=== PATIENT | female | born 2005 | race Two or more races ===

== ENCOUNTER 2023-03-07 11:34 | Emergency (ER) | payer MEDICAID, OTHER, SELFPAY ==
--- NOTE | ~2023-03-07 | XR_ITS ---
EXAMINATION: XR ABDOMEN COMPLETE CLINICAL INDICATION: Rule out constipation COMPARISON: None available. TECHNIQUE: 2 views of the abdomen. FINDINGS: Moderate stool burden in the distal colon. No dilated loops of bowel to suggest obstruction. No evidence of free air. No calcifications. Curvature of the lower lumbar spine to the right. XR/XR abdomen min 2V IMPRESSION: Constipation. No evidence of obstruction.
--- NOTE | 2023-03-07 11:42 | ED.PSYCH ---
HPI - Psych General Chief Complaint: Psychiatric Symptoms Stated Complaint: SI Time Seen by Provider: 03/07/23 12:57 Source: patient, RN notes reviewed and other (guidance counselor) Mode of arrival: ambulatory Limitations: no limitations History of Present Illness HPI Narrative: 17 year old female with pmhx significant for constipation presents to the ED for evaluation of suicidal ideation. She presents with her school guidance counselor who is at bedside. Patient admits to not being well for some time . Admits to having thoughts of harming herself. Denies plan. Reports history of self-harm years ago. Can't remember how she harmed herself. She denies illicit drug use. Denies auditory, visual, tactile hallucinations. Denies HI. Her only physical complaint at present is left-sided abdominal pain. Cannot say when this pain started. Cannot remember when her last BM was. Does not currently take anything for constipation. She is currently a liberal arts major in college and reports increased stressors. Related Data Home Medications Medication Instructions Recorded Confirmed No Known Home Meds 03/07/23 03/07/23 Allergies Allergy/AdvReac Type Severity Reaction Status Date / Time No Known Allergies Allergy Verified 03/07/23 11:47 Review of Systems Review of Systems: Constitutional: No fever, chills, fatigue, night sweats, weight changes ENT/Mouth: No ear pain, hearing loss, nasal congestion, sinus pain, rhinorrhea, sore throat Eyes: No eye pain, swelling, redness, vision changes, discharge Cardio: No chest pain, palpitations, MURPHY, orthopnea, peripheral edema Pulm: No SOB, cough, sputum, wheezing, dyspnea, hemoptysis GI: No nausea, vomiting, hematemesis, abdominal pain, diarrhea, constipation, hematochezia, melena : No irregular bleeding, dysuria, frequency, urgency, hesitancy, hematuria, flank pain, urinary flow changes, urinary incontinence or retention MSK: No back pain, neck pain, joint pain, myalgias Skin: No lesions, rashes Neuro: No weakness, numbness, paresthesias, LOC, dizziness, headache Psych: No anxiety/panic, +depression, +SI, No HI, AH/VH All other systems reviewed and are negative. [facility] Past Medical History Attestation statement: The following information was validated with the patient. Source: old records reviewed and nursing notes reviewed Social History Social History Alcohol intake: never Smoked in Last 30 Days: No Use of substances other than those prescribed or required for medical reasons: No Advance Directives: No Healthcare Proxy: No Guardian: No Physical Exam Vital Signs: Vital Signs: Last Vital Signs Temp 98.1 F 03/07/23 16:17 Pulse 68 03/08/23 06:24 Resp 14 03/08/23 06:24 BP 113/55 L 03/08/23 06:24 Pulse Ox 99 03/08/23 06:24 O2 Del Method Room Air 03/08/23 06:24 BMI result Body Mass Index 17.8 Vital signs stable Const: Other: + Soft spoken, avoiding eye contact, hesitant to answering questions General: cooperative, no acute distress, alert and awake Orientation/consciousness: patient oriented x3 Limitations: no limitations HEENT: Head: Yes normal to inspection Ears: hearing grossly normal bilaterally General nose exam: Normal external nose present Eyes: General: appearance normal, both eyes and all related structures Conjunctivae: conjunctivae normal Sclerae: sclerae normal Pupils: Equal, round and reactive pupils present Neck: Neck: Yes normal visual inspection and Yes no lymphadenopathy Resp: Effort & Inspection: normal respiratory effort Auscultation: clear to auscultation bilaterally Cardio: Rate: regular rate Rhythm: regular rhythm Peripheral pulses: radial pulses present and dorsalis pedis present GI: Other: + Abdomen soft, nondistended, tender to palpation of the left upper and left lower quadrants, no rebound or guarding, normoactive BS x4. Inspection: Yes normal to inspection and No visible pulsation : General: Yes no CVA tenderness Back/Spine/Pelvis: Back: no CVA tenderness Skin: General skin exam: no rashes or lesions noted Trauma: no lacerations or abrasions Neuro: General: patient oriented x3, gait normal and moves all extremities Cranial nerves: Yes CN's II-XII intact bilaterally and Yes Equal, round and reactive pupils present Extrem: General: Yes normal to inspection Psych: Other: + Slow to answer questions. Guarded in her answers, specifically when talking about her past. Avoids eye contact. Soft spoken. Appearance: grossly normal Course Course Course Narrative: This is an RME: Additional HPI, ROS, PE not included below will be deferred to primary provider. This is a 44-rby[age]-mpw-female, with no known medical problems, presenting to the emergency department for evaluation of no longer wanting to live. Pt very somnolent in triage, not answering questions. Coaches here from school stating that patient informed her that she no longer had the will to live. She did not express any plans. When I personally asked if she has made any attempts to end her life, patient reports no. No auditory or visual hallucinations. Was seen at [facility] several days ago for ?allergies?, unable to answer me when asked if she has ever been admitted to a psychiatric hospital. Pt brought back immediately to room 8 for further evaluation. Plan: Labs, UA, utox, ethanol, care team Reevaluation(s) Reevaluation #1: 1529-- CBC without leukocytosis or anemia. Chemistry without acute electrolyte abnormality requiring intervention. Ethanol negative. Awaiting UA, urine Pred, urine drug screen, x-ray. >> Physician observation initiated. 1635-- X-ray abdomen showing constipation, no obstruction. Will order miralax and monitor for BM. Urine drug screen negative. Urine negative. Urine showing moderate amount of leukocyte esterase, 6-10 WBC however 11-20 squamous epithelial cells, likely contamination, no infection. Patient is medically cleared for care team consult. Physician observation initiated. 1648-- Discussed case with Ophelia from care team who evaluated patient. Plan at this time is to transfer patient to respite facility in the morning. Patient is agreeable with this plan. Physician observation continued. 1649-- Patient signed out to my collegue Santosh ESPINAL. Reevaluation #2: Has been evaluated by care team patient is a good candidate for [facility] respite bed, will arrange for transportation. Time: 11:26 Medications Administered Discontinued Medications Generic Name Dose Route Start Last Admin Trade Name Freq PRN Reason Stop Dose Admin Polyethylene Glycol 17 gm 03/07/23 16:15 03/07/23 16:20 Polyethylene Glycol 3350 17 Gm Powd.Pack PO 03/07/23 16:16 17 gm ONCE ONE Administration Medical Decision Making Medical Decision Making MDM Narrative: 17 year old female with pmhx significant for constipation presents to the ED for evaluation of suicidal ideation. VSS. Patient slow to answer questions, guarded. Soft spoken and avoiding eye contact. Abdomen is soft, ND, mildly TTP of LLQ/LUQ, no rebound or guarding, normoactive BS x4. Concern for suicidal ideation. Clinical concern for chronic constipation vs obstruction. Unlikely acute abdomen. Plan at this time is labs, imaging, and medical clearance. Differential Diagnosis Differential Diagnoses: The differential diagnosis associated with the presentation includes As above. Consult Healthcare Provider Management of the patient was discussed with: Behavioral Health Provider (care team) Lab Data MDM Lab Attestation statement: I reviewed the patient's lab results. As above. 03/07/23 13:04 03/07/23 13:04 Labs: Lab Results 03/07/23 03/07/23 Range/Units 13:04 16:16 WBC 6.6 (4.8-10.8) X10*3/uL RBC 4.58 (4.20-5.50) X10*6/uL Hgb 14.1 (12.0-16.0) g/dl Hct 41.0 (37.0-47.0) % MCV 89.5 (80.0-98.0) fL MCH 30.8 (27.0-33.0) pg MCHC 34.4 (31.0-35.0) g/dl RDW 12.1 (11.0-16.0) % Plt Count 337 (160-400) X10*3/uL MPV 8.9 L (9.4-12.3) fL Immature Gran % (Auto) 0.2 (0.0-0.4) % Neut % (Auto) 62.4 (45-73) % Lymph % (Auto) 32.8 (20-40) % [place] % (Auto) 4.0 (2-11) % Eos % (Auto) 0.3 (0-4) % Baso % (Auto) 0.3 (0-2) % Lymph # (Auto) 2.2 (1.2-4.9) X10*3/uL [place] # (Auto) 0.3 (0.1-1.2) X10*3/uL Eos # (Auto) 0.0 (0.0-0.4) X10*3/uL Baso # (Auto) 0.0 (0.0-0.2) X10*3/uL Abs Immat Gran (auto) 0.01 (0.00-0.03) X10*3/uL Absolute Neuts (auto) 4.1 (2.0-8.3) x10*3/uL Absolute Nucleated RBC 0.000 (0.0-0.012) X10*3/uL Nucleated RBC % (auto) 0.0 (0.0-0.2) /100WBC Sodium 137 (135-145) mmol/L Potassium 4.0 (3.3-5.1) mmol/L Chloride 107 (96-108) mmol/L Carbon Dioxide 22 (22-29) mmol/L Anion Gap 12 (12-20) BUN 13 (9-16) mg/dL Creatinine 0.71 (0.5-1.4) mg/dL Estim Creat Clear Calc 83.0 Estimated GFR > 60 Random Glucose 119 H (60-115) mg/dL Calcium 9.6 (8.4-10.2) mg/dL Total Bilirubin 0.5 (0.0-1.0) mg/dL Direct Bilirubin 0.2 (0.0-0.5) mg/dL AST 21 (5-31) U/L ALT 9 (0-31) U/L Alkaline Phosphatase 71 (39-117) U/L Total Protein 7.5 (6.5-8.0) g/dL Albumin 4.1 (3.5-5.0) g/dL Urine Color Yellow Urine Appearance Cloudy Urine pH 6.5 (5.0-9.0) Ur Specific [place] 1.015 (1.005-1.025) Urine Protein Negative (Neg-Trace) mg/dL Urine Glucose (UA) Negative (Negative) mg/dL Urine Ketones 15 (Negative) mg/dL Urine Blood Negative (Negative) Urine Nitrite Negative (Negative) Ur Leukocyte Esterase Moderate (2+) H (Negative) Urine RBC 0-2 (0-2) /HPF Urine WBC 6-10 H (0-5) /HPF Ur Squamous Epith Cells 11-20 (0-2) /HPF Urine Bacteria 2+ (None Seen) Hyaline Casts 0-2 (0-2) /LPF Urine Test NEGATIVE (NEGATIVE) Urine Opiates Screen Not Detected (Not Detect) Urine Fentanyl Screen Not Detected (Not Detect) Ur Barbiturates Screen Not Detected (Not Detect) Ur Phencyclidine Scrn Not Detected (Not Detect) Ur Amphetamines Screen Not Detected (Not Detect) U Benzodiazepines Scrn Not Detected (Not Detect) Urine Cocaine Screen Not Detected (Not Detect) U Marijuana (THC) Screen Not Detected (Not Detect) Ethyl Alcohol < 10 mg/dL Independent Interpretation I performed an independent interpretation of an: Plain X-Ray Interpretation: XR abdomen showing constipation, agree with radiologist's interpretation. Radiology Impression Discussion of test interpretation with radiology: I have reviewed the radiologist's reading. Radiologist Impression: XR abdomen min 2V IMPRESSION: Constipation. No evidence of obstruction. Independent Historian Clinical information obtained from an independent historian. History obtained from or confirmed by: Other (school counselor) External Record Review External record reviewed: Inpatient record Prescription Management I considered prescription management with: Other (laxative) Chronic Conditions Patient?s care impacted by: Other (constipation) Social Determinants Patient?s care significantly limited by Social Determinants of Health including: Other Social Determinant of Health Critical Care Time Critical Care Time Critical Care Time: No Discharge Plan Discharge Clinical Impression: Suicidal ideation, Depression, Constipation Patient Disposition: Still a Patient Prescriptions: No Action No Known Home Meds Interventions: [place]-Suicide Risk Severity Scale Last Done: 03/08/23 10:00
[2023-03-07 11:43] VITALS: BP 108/79; PULSE 89; RESP 18; TEMP 37; O2SAT 100; BMI 17.8
--- NOTE | 2023-03-07 11:52 | MHC.CARE ---
CARE Team received call from Alycia ramirez [facility] counselor ([phone]) she reported that Pt was brought to her office today by her learning strategist. Pt has communicated that she has been experiencing suicidal thoughts since weekend. Pt was nonverbal and responding to questions by writing them down on paper. She stated Pt was recently seen for crisis somewhere but reported she did not disclose SI to them. Mattjasmeet reported Pt was enrolled in counseling services at [facility] but has not been active with services recently and is able to speak normally though she is slow to respond at times.
--- NOTE | 2023-03-07 12:15 | PC.NURSE ---
Patient alert and oriented. reports has had thoughts of SI for thelast few days. Reports chest and abdominal pain. Reports has had some nausea and vomiting over the last few days.Patient tearful and soft spoken with poor eye contact. Denies SI, denies any stressors at home or school.
[2023-03-07 13:08] LABS: MANUAL DIFF FLAG NO
[2023-03-07 13:09] LABS: Basophils Percent Auto 0.3 % (0-2); Eosinophils Percent Auto 0.3 % (0-4); Hemoglobin 14.1 g/dl (12.0-16.0); Imm Gran Abs Auto 0.01 X10*3/uL (0.00-0.03); Imm Gran Pct Auto 0.2 % (0.0-0.4); Lymphocytes Absolute Auto 2.2 X10*3/uL (1.2-4.9); Lymphocytes Percent Auto 32.8 % (20-40); Mean Corpuscular HGB Conc 34.4 g/dl (31.0-35.0); Mean Corpuscular Hemoglobin 30.8 pg (27.0-33.0); Mean Corpuscular Volume 89.5 fL (80.0-98.0); Mean Platelet Volume 8.9 fL (9.4-12.3); Monocytes Absolute Auto 0.3 X10*3/uL (0.1-1.2); Neutrophils Absolute Auto 4.1 x10*3/uL (2.0-8.3); Neutrophils Percent Auto 62.4 % (45-73); Platelet Count 337 X10*3/uL (160-400); Red Blood Count 4.58 X10*6/uL (4.20-5.50); Red Cell Distribution Width 12.1 % (11.0-16.0); White Blood Count 6.6 X10*3/uL (4.8-10.8)
[2023-03-07 13:40] LABS: Alanine Aminotransferase 9 U/L (0-31); Albumin Level 4.1 g/dL (3.5-5.0); Alkaline Phosphatase 71 U/L (39-117); Anion Gap 12 (12-20); Aspartate Amino Transferase 21 U/L (5-31); Bilirubin Direct 0.2 mg/dL (0.0-0.5); Bilirubin Total 0.5 mg/dL (0.0-1.0); Blood Urea Nitrogen 13 mg/dL (9-16); Calcium 9.6 mg/dL (8.4-10.2); Carbon Dioxide 22 mmol/L (22-29); Chloride 107 mmol/L (96-108); Estimated Glomerular Filt Rate > 60; Ethanol < 10 mg/dL; Glucose Random 119 mg/dL (60-115); Sodium 137 mmol/L (135-145); Total Protein 7.5 g/dL (6.5-8.0)
[2023-03-07 16:17] VITALS: BP 107/63; PULSE 94; RESP 16; TEMP 36.7; O2SAT 98
[2023-03-07] MEDS: polyethylene glycoL 3350 17 GM POWD.PACK PO (16:20)
[2023-03-07 16:27] LABS: Appearance Urine Cloudy; Color Urine Yellow; Glucose Urine UA Negative (Negative); Leukocyte Esterase Urine Moderate (2+) (Negative); Nitrite Urine Negative (Negative); PH 6.5 (5.0-9.0); Specific Gravity - Urine 1.015 (1.005-1.025); UMIC TRIGGER UACC YES; Urine Blood Negative (Negative); Urine Ketones 15 mg/dL (Negative); Urine Protein Negative (Neg-Trace)
[2023-03-07 16:29] LABS: UPreg QC Valid YES; Urine Pregnancy NEGATIVE (NEGATIVE)
[2023-03-07 16:32] LABS: Bacteria Urine 2+ (None Seen); Hyaline Casts Urine 0-2 /LPF (0-2); RBC Urine 0-2 /HPF (0-2); UACC Culture Trigger YES
[2023-03-07 16:33] LABS: Amphetamine Screen Urine Not Detected (Not Detect); Barbiturates, Urine Not Detected (Not Detect); Benzodiazepines Screen Urine Not Detected (Not Detect); Cannabinoid Screen Urine Not Detected (Not Detect); Cocaine Screen Urine Not Detected (Not Detect); Fentanyl, urine Not Detected (Not Detect); Opiate Screen Urine Not Detected (Not Detect); Phencyclidine Screen Urine Not Detected (Not Detect)
--- NOTE | 2023-03-08 06:03 | PC.NURSE ---
Patient slept through the night, no distress observed/reported, no behavior concern, disposition per care team is respite bed search, med rec completed/patient is currently not on any home medication, labs completed/resulted, vss, will continue to monitor.
[2023-03-08 06:24] VITALS: BP 113/55; PULSE 68; RESP 14; O2SAT 99
--- NOTE | 2023-03-08 07:10 | PC.NURSE ---
Resumed care of patient, she is currently sleeping. Safety checks maintained, q 15 minute checks. Awaiting respite care at this time.
--- NOTE | 2023-03-08 10:02 | PC.NURSE ---
Patient is up and talking with staff, she has taken a phone call this morning, and is currently taking a shower offered by staff. She reported to staff she knows why she is here, but does report that she feels safe here with staff.
--- NOTE | 2023-03-08 10:23 | MHC.CARE ---
Pt referral to [facility] was approved; awaiting on [facility] to coordinate transport from [facility] to [facility].
--- NOTE | 2023-03-08 11:32 | MHC.CARE ---
Accepted to [facility] for anytime after noon. ED attending Dr Foster aware and agreed to d/c patient so transportation / Lyft can be set up.
== END 2023-03-08 12:01 | disposition home or self-care (01) ==
PROVIDERS: Physician Assistant Medical; Emergency Provider Student in an Organized Health Care Education/Training Program
DX: F33.1 Major depressive disorder, recurrent, moderate (principal); R45.851 Suicidal ideations; K59.00 Constipation, unspecified; Z79.899 Other long term (current) drug therapy
CPT/HCPCS: 36415; 74019; 80048; 80076; 80307; 81001; 81025; 85025; 87086; 99284; 99285; S9485